=== PATIENT | female | born 1980 ===

== ENCOUNTER 2020-06-24 13:15 | Inpatient (IN) | payer OTHER ==
[~2020-06-24] VITALS: Ht 175.3 cm; Wt 102.1 kg
== END 2020-07-09 13:49 | disposition home or self-care (01) | DRG 807 ==
LOC: OB/GYN 07-07 07:26 → LDR 07-07 07:26 → OB/GYN 07-07 20:51 → SURH 07-13 13:15 → OB/GYN 07-13 13:15
PROVIDERS: ADMIT Obstetrics & Gynecology; ATTEND Obstetrics & Gynecology
PROC: 10E0XZZ Delivery of Products of Conception, External Approach (ICD-10-PCS; principal; 2020-07-07)
PROC: 3E033VJ Introduction of Other Hormone into Peripheral Vein, Percutaneous Approach (ICD-10-PCS; 2020-07-07)
PROC: 4A1HXFZ Monitoring of Products of Conception, Cardiac Rhythm, External Approach (ICD-10-PCS; 2020-07-07)
PROC: 0HQ9XZZ Repair Perineum Skin, External Approach (ICD-10-PCS; 2020-07-07)
DX: O70.0 First degree perineal laceration during delivery (principal); Z37.0 Single live birth; O24.425 Gestational diabetes mellitus in childbirth, controlled by oral hypoglycemic drugs; Z3A.39 39 weeks gestation of pregnancy